=== PATIENT | male | born 1990 | race Caucasian/White ===

== ENCOUNTER 2017-11-30 00:46 | Emergency (ER) | payer OTHER ==
[~2017-11-30] VITALS: Ht 195.6 cm; Wt 149.7 kg
[~2017-11-30 00:46] MED LIST: KEFLEX500 MG PO
[2017-11-30 03:00] VITALS: BP 142/68
--- NOTE | 2017-11-30 03:11 | ED UPPER/LOWER EXTREMITY COMPL ---
History of Present Illness General Chief Complaint: Animal/Insect Bite Stated Complaint: "DOG BITE ON RT ARM, FINGERS, AND LT WRIST" Source: patient Exam Limitations: no limitations Vital Signs & Intake/Output Vital Signs & Intake/Output Vital Signs Date Time Temp Pulse Resp B/P B/P Pulse O2 O2 Flow FiO2 Mean Ox Delivery Rate 11/30 0110 96.0 79 18 164/98 97 Room Air Allergies Coded Allergies: NO KNOWN ALLERGIES (03/31/14) Triage Note: PT REPORTS HE WAS BIT BY A FRIEND'S DOG EARLIER THIS EVENING. PT REPORTS HE WAS INFORMED THE DOG WAS UP TO DATE WITH VACCINES. LAST TETNUS 4 YEARS AGO. PT HAS SMALL ABRATIONS TO L WRIST, R 3RD AND 4TH FINGER AND TWO SMALL PUNCTURES TO L FOREARM. BLEEDING CONTROLLED. PT DECLINED PAIN MEDICATION IN TRIATE. Triage Nurses Notes Reviewed? yes HPI: Patient presents for evaluation of injury sustained after being attacked by a dog at a constitution party. Patient states he dog sort of came up behind him biting him primarily on the right hand and right elbow. He also suffered a nip to the left wrist. Past History Travel History Traveled to [place] past 21 day No Medical History Any Pertinent Medical History? 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 No Review of Systems Review of Systems Constitutional: Reports: no symptoms. EENTM: Reports: no symptoms. Respiratory: Reports: no symptoms. Cardiovascular: Reports: no symptoms. Gastrointestinal/Abdominal: Reports: no symptoms. Genitourinary: Reports: no symptoms. Musculoskeletal: Reports: no symptoms. Skin: Reports: see HPI. Neurological/Psychological: Reports: no symptoms. Hematologic/Endocrine: Reports: no symptoms. Immunological: Reports: no symptoms. All Other Systems: Reviewed and Negative Physical Exam Physical Exam General Appearance: SEE BELOW Comments: Gen.: Well-nourished, well-developed, no acute respiratory distress. Head: Normocephalic, atraumatic. Eyes: Normal inspection bilaterally Ears: Normal inspection bilaterally Nose: Normal inspection Throat/mouth : Moist mucosa Neck: Supple, full range of motion, no goiter Heart: Regular rate and rhythm Lungs: Quiet respirations Back: Normal range of motion Extremities: Left wrist: Oval-shaped abrasion over the ulnar aspect of the anterior wrist. Right hand: Linear abrasions proximal right index finger, distal left middle finger and distal left ring finger over the extensor aspect. Right elbow: 4 puncture wounds over the extensor aspect. Mild soft tissue swelling present. No visible or palpable foreign bodies in the wounds. Both extremities are neurovascularly intact distally and show no weakness or loss of tendon function. Neurologic: Cranial nerves grossly intact, speech is clear Skin: warm and dry Psychiatric: Calm, cooperative, no apparent delusions or hallucinations Progress Differential Diagnosis: contusion, dislocation, fracture, sprain, tendon injury, MUSCLE INJURY Plan of Care: Wound care, antibiotics Departure Departure Disposition: HOME OR SELF CARE Condition: Stable Clinical Impression Primary Impression: Puncture wound Secondary Impressions: Abrasions of multiple sites Dog bite Qualifiers: Encounter type: initial encounter Qualified Code: W54.0XXA - Bitten by dog, initial encounter Referrals: Patient Has No Primary Care Dr (PCP/Family) Additional Instructions: Dressing as needed. Follow-up with your primary care physician or return to the emergency department in 48-72 hours for wound check. Ibuprofen 600 mg every 6 hours as needed for wound pain. Ice to any areas of swelling over the next 24- 48 hours. Return if any concerns or sudden worsening. Thank you for choosing the [facility] for your care. It was a pleasure to serve you today. Say Montero M.D. [facility] Departure Forms: Customer Survey General Discharge Information
== END 2017-11-30 03:17 ==
LOC: ERH 00:46
DX: S61.451A Open bite of right hand, initial encounter (principal); S51.051A Open bite, right elbow, initial encounter; S60.812A Abrasion of left wrist, initial encounter; W54.0XXA Bitten by dog, initial encounter; Y92.9 Unspecified place or not applicable; Y93.89 Activity, other specified